=== PATIENT | male | born 1980 | race Caucasian/White ===

== ENCOUNTER 2018-09-08 18:00 | Inpatient (IN) | payer OTHER ==
[~2018-09-08] VITALS: Ht 180.3 cm; Wt 88.0 kg
--- NOTE | ~2018-09-08 | EKG ---
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
--- NOTE | ~2018-09-08 | EKG ---
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: JONY : 1980 Requested By: Omar Rodriguez Order Number: [id number] MD: Tacos Campbell Measurements Intervals [place] Rate: 94 P: 69 GA: 165 QRS: 46 QRSD: 97 T: 40 QT: 360 QTc: 451 Interpretive Statements Sinus rhythm Premature ventricular and supraventricular complexes Poor R wave progression Baseline wander in lead(s) V4 No previous ECG available for comparison Electronically Signed On 09-09-2018 7:50:30 PAPER PLATE MACHINE TENDER by Tacos Campbell [email or web address] <ELECTRONICALLY SIGNED> By: Tacos Campbell MD, [facility] 09/09/18 0750 07 07 Tacos Campbell MD, [facility] /EPI
--- NOTE | ~2018-09-08 | EKG ---
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 : 1980 Requested By: Jeremy Edge Order Number: [id number] MD: Jama Lewis Measurements Intervals [place] Rate: 73 P: 66 FL: 163 QRS: 56 QRSD: 88 T: 23 QT: 376 QTc: 415 Interpretive Statements Sinus bradycardia Atrial premature complexes in couplets Left atrial enlargement Compared to ECG 09/09/2018 03:56:25 Atrial premature complex(es) now present Atrial abnormality now present Sinus rhythm no longer present Electronically Signed On 09-11-2018 20:33:30 FINAL INSPECTOR by Jama Lewis [email or web address] <ELECTRONICALLY SIGNED> By: Jama Lewis MD 09/11/18 2033 1012 1012 Jama Lewis MD /EPI
[~2018-09-08 18:00] MED LIST: CELEXA40 MG PO; CLONAZEPAM 1 MG1 M1 PO; SUBOXONE 2 MG-1 EAC1 PO; TESTOSTERO200 MG/11 IM
[2018-09-08 18:03] VITALS: BP 137/96
[2018-09-08 18:54] LABS: PLATELET COUNT 371 thou/uL (150-400)
[2018-09-08 18:56] LABS: ABSOLUTE NEUTROPHILS 4.5 thou/uL (1.4-8.2); BASOPHILS 1.8 % (0.0-2.0); EOSINOPHILS 7.9 % (0.0-3.0); HEMATOCRIT 49.7 % (42.0-52.0); HEMOGLOBIN 17.2 gm/dL (14.0-18.0); LYMPHOCYTES 36.1 % (24.0-44.0); MCHC 34.5 g/dL (28.0-37.0); MCV 92.8 fL (80.0-100.0); MONOCYTES 11.3 % (1.0-8.0); POLYS 42.9 % (36.0-66.0); RBC 5.36 mil/uL (4.50-6.00); RDW 14.3 % (10.5-14.5); WBC 10.5 thou/uL (4.0-11.0)
[2018-09-08 19:01] LABS: ANION GAP 4 mmol/L (7-16); BUN 13 mg/dL (7-18); CALCIUM 9.8 mg/dL (8.5-10.1); CHLORIDE 102 mmol/L (98-107); CO2 32 mmol/L (21-32); CREATININE 1.2 mg/dL (0.7-1.3); GLUCOSE 84 mg/dL (74-106); POTASSIUM 3.9 mmol/L (3.5-5.1); SODIUM 138 mmol/L (136-145)
[2018-09-08 19:10] LABS: TROPONIN-I <0.06 ng/mL (<0.06)
[2018-09-08 19:22] LABS: LARGE PLATELETS FEW; PLATELET ESTIMATE NORMAL
[2018-09-08 19:47] VITALS: BP 137/96
[2018-09-08 19:57] VITALS: BP 118/64
[2018-09-08 20:30] VITALS: BP 150/94
[2018-09-08 20:50] LABS: CHOLESTEROL 188 mg/dL (<200); HDL CHOLESTEROL 53 mg/dL (>40); LDL CHOLESTEROL 115 mg/dL (<100); TC:HDL 3.5 Ratio (Not establshd); TRIGLYCERIDE 101 mg/dL (<150); VLDL 20 mg/dL (<40)
[2018-09-09] VITALS (7 sets, daily range): BP systolic 90–154; BP diastolic 43–87
[2018-09-09 04:33] LABS: CALCIUM 8.9 mg/dL (8.5-10.1); CREATININE 1.2 mg/dL (0.7-1.3); POTASSIUM 3.8 mmol/L (3.5-5.1)
[2018-09-10 06:34] VITALS: BP 107/58
[2018-09-10 07:54] VITALS: BP 107/54
[2018-09-10] MEDS ORDERED: ASPIR 8181 MG PO (10:16)
[2018-09-10] MEDS ORDERED: SORINE 80 MG TA80 M1 PO (10:16)
[2018-09-10] MEDS ORDERED: ACETAMINOPHEN325 M1 PO (10:16)
[2018-09-10] MEDS ORDERED: COLACE 100 MG100 MG PO (10:16)
[2018-09-10 11:38] VITALS: BP 117/69
[2018-09-10 12:46] VITALS: BP 117/69
== END 2018-09-10 13:08 | disposition home or self-care (01) | DRG 310 ==
LOC: ER 18:00 → 2N 19:58
PROVIDERS: Emergency Medicine; Nurse Practitioner Family
DX: I48.0 Paroxysmal atrial fibrillation (principal); I49.5 Sick sinus syndrome; G89.4 Chronic pain syndrome; F32.9 Major depressive disorder, single episode, unspecified; F17.210 Nicotine dependence, cigarettes, uncomplicated; F41.9 Anxiety disorder, unspecified; Z90.81 Acquired absence of spleen; Z87.828 Personal history of other (healed) physical injury and trauma; Z79.899 Other long term (current) drug therapy; Z71.6 Tobacco abuse counseling; Z28.21 Immunization not carried out because of patient refusal
CPT/HCPCS: 10081

== ENCOUNTER → 2018-10-10 | Outpatient (CLI) | payer OTHER ==
[~2018-10-10] MED LIST changes: +ACETAMINOPHEN325 M1 PO; +ASPIR 8181 MG PO; +COLACE 100 MG100 MG PO; +SORINE 80 MG TA80 M1 PO
[2018-10-10 07:43] LABS: HEMATOCRIT 51.1 % (42.0-52.0); HEMOGLOBIN 17.5 gm/dL (14.0-18.0); MCH 32.1 pg (26.0-34.0); MCHC 34.3 g/dL (28.0-37.0); MCV 93.5 fL (80.0-100.0); RBC 5.46 mil/uL (4.50-6.00); RDW 14.2 % (10.5-14.5); WBC 7.8 thou/uL (4.0-11.0)
[2018-10-10 07:57] LABS: ALBUMIN 4.2 g/dL (3.4-5.0); CALCIUM 9.2 mg/dL (8.5-10.1); CREATININE 1.3 mg/dL (0.7-1.3); POTASSIUM 4.2 mmol/L (3.5-5.1); TOTAL BILIRUBIN 0.3 mg/dL (<0.1-1.0); TOTAL PROTEIN 8.1 g/dL (6.4-8.2)
== END ==
LOC: CAT 07:12
PROVIDERS: Internal Medicine Cardiovascular Disease
DX: Z01.812 Encounter for preprocedural laboratory examination (principal); I48.91 Unspecified atrial fibrillation

== ENCOUNTER 2018-10-13 06:40 | Observation (INO) | payer OTHER ==
[~2018-10-13] VITALS: Ht 177.8 cm; Wt 88.5 kg
--- NOTE | ~2018-10-13 | P ---
[facility] [place] [address] PROCEDURE REPORT Name: INES GUEVARA Room #: [facility] Willie Galvin#: [id number] Admission: 10/13/18 Attend Phys: Jama Lewis MD Discharge: 10/14/18 Date of : 78 Report #: [id number] THIS REPORT FOR: //name// CC: Cristiane Lewis PREOPERATIVE DIAGNOSES: 1. Paroxysmal atrial fibrillation. 2. Paroxysmal atrial tachycardia. POSTOPERATIVE DIAGNOSES: 1. Paroxysmal atrial fibrillation. 2. Paroxysmal atrial tachycardia. PROCEDURES PERFORMED: 1. AFib ablation, CPT code 85661. 2. Program stimulation and pacing after IV, CPT code 55685. 3. 3D mapping, CPT code 47897. 4. Intracardiac echo, CPT code 38161. 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 He was recently admitted to hospital with atrial fibrillation with rapid ventricular response. However, he reports that for several years. He has had skipped heartbeats. On his 12-lead EKG, he has sinus rhythm followed by 3-4 beats of atrial tachycardia followed by return to sinus rhythm. He is here for EP study, possible ablation of the focal atrial tachycardia versus AFib ablation. DESCRIPTION OF PROCEDURE: The patient was brought to the EP laboratory in a fasting and sedated state and prepped and draped in a sterile fashion. Prior to being brought into the EP lab, he underwent informed consent. In the right femoral vein, I placed an 8-Togolese and 6-Togolese short sheath in the left femoral vein. I placed a 9-Togolese and 7-Togolese short sheath using the modified Seldinger technique. Next, under fluoroscopy, I placed 3 quadripolar catheters at the HRA, His, and RV positions and a decapolar catheter into the coronary sinus under fluoroscopy. At baseline, the patient was in sinus rhythm with sinus cycle length of 870 milliseconds, MO interval 135 milliseconds, QRS duration 91 milliseconds, QT interval 376 milliseconds, AH interval 135 milliseconds, and HV interval 45 milliseconds. With ventricular pacing, VA block was noted at 580 milliseconds, ventricular ERP was noted at 440 milliseconds at [address] cycle length. Atrial burst pacing was performed and AV block was noted at 350 milliseconds and atrial ERP was noted at 250 milliseconds at a [address] cycle length. There were no jumps or AV merna echoes. There were frequent PACs noted. These appear to be left-sided in origin based on the earliest activation on CS 1, 2 followed by latest activation in the right atrium. Next, isoproterenol infusion was initiated and AV block was noted at 300 milliseconds. Atrial burst pacing [facility] [address] [place] [address] PROCEDURE REPORT Name: PAOLAINES Room #: 210-P DENISSE Galvin#: [id number] Admission: 10/13/18 Attend Phys: Jama Lewis MD Discharge: 10/14/18 Date of : 78 Report #: [id number] maneuvers were performed and I could not induce an atrial tachycardia. I then increased the isoproterenol to 5 mcg per minute; AV block was noted 260 milliseconds. On higher isoproterenol, now there were more frequent PACs, which were reproducibly left-sided in nature. He would have anywhere from 1-5 of these beats of atrial tachycardia. It did not look like these would be easily mappable and did not appear to be right-sided. We then proceeded with transseptal. The patient was systemically heparinized and a transseptal was performed using an SL1 sheath and a [place] needle. Transseptal was straightforward and once I was in the left atrium, I placed a mapping catheter into the pulmonary veins and it became clear that the earliest atrial activity was coming from the left common ostium. We had performed a CT prior to the ablation and he had a left common ostium and two right veins. The atrial signal was 43 milliseconds earlier than the surface P-wave morphology. I therefore exchanged the SL1 sheath for the cryo sheath and placed the cryoballoon into the left atrium and we isolated the left common ostium first. The first freeze had good temperatures at -55 degrees and I stayed on for 170 seconds. After this freeze, the vein was isolated and there were no more premature atrial contractions noted. I performed an additional 4-minute freeze followed by a 3-minute freeze to ensure that this common ostium remained isolated. Once I isolated the left common ostium, I started the isoproterenol back and I could not demonstrate any more PACs. Given that he had had atrial fibrillation as well, I decided that we should go ahead and isolated the other two veins. The right superior vein isolated with one 4-minute freeze and the right inferior pulmonary vein isolated after a 4-minute followed by a 3-minute freeze with evidence of entrance and exit block. While freezing the right-sided veins, phrenic nerve pacing was performed from the decapolar catheter placed in the superior vena cava. Post-ablation, I created a detailed voltage map of the left atrium, which showed that we had isolated the pulmonary veins and had created a wide circumferential ablation of the left atrium. Of note, it appeared that there was isolated firing of the left common ostium and this was no longer conducting to the atrium. Post-ablation, there were no other arrhythmias noted. As such, using intracardiac ultrasound, I verified that there was no pericardial effusion. I then pulled my catheters and sheaths to the right atrium and the patient received systemic protamine. Once the ACT was within acceptable range, catheters and sheaths were pulled and hemostasis was obtained. The patient awoke neurologically and hemodynamically intact. No complications and no significant bleeding. CONCLUSIONS: 1. Successful AFib ablation with isolation of 3 pulmonary veins. 2. Successful ablation of the focal left atrial tachycardia that was arising from the left common ostium. 3. Normal SA merna function. 4. Normal AV node function. [facility] [address] [place] [address] PROCEDURE REPORT Name: PAOLAINES Room #: [address] [place] [address] Willie VillalbaRSimone#: [id number] Admission: 10/13/18 Attend Phys: Jama Lewis MD Discharge: 10/14/18 Date of : 78 Report #: [id number] 5. Normal His-Purkinje function. 6. No other inducible arrhythmias on or off isoproterenol. By: [id number] Jaam Lewis MD /nt
[2018-10-13] MEDS ORDERED: FLURBIPROFEN100 MG PO (06:46)
[2018-10-13] MEDS ORDERED: CARDIZEM CD120 MG PO (06:46)
[2018-10-13 07:06] VITALS: BP 114/63
[2018-10-13 07:09] LABS: HEMATOCRIT 49.3 % (42.0-52.0); MCH 31.9 pg (26.0-34.0); MCHC 34.5 g/dL (28.0-37.0); MCV 92.7 fL (80.0-100.0); PLATELET COUNT 374 thou/uL (150-400); RBC 5.32 mil/uL (4.50-6.00); RDW 14.4 % (10.5-14.5); WBC 6.5 thou/uL (4.0-11.0)
[2018-10-13] MEDS ORDERED: PRADAXA150 MG PO (07:14)
[2018-10-13 07:28] LABS: CALCIUM 9.4 mg/dL (8.5-10.1); CREATININE 1.2 mg/dL (0.7-1.3); POTASSIUM 4.3 mmol/L (3.5-5.1)
[2018-10-13 07:35] LABS: TOTAL BILIRUBIN 0.7 mg/dL (<0.1-1.0); TOTAL PROTEIN 7.6 g/dL (6.4-8.2)
[2018-10-13 07:55] LABS: ABSOLUTE NEUTROPHILS 2.6 thou/uL (1.4-8.2); ATYPICAL LYMPHS 5 %
[2018-10-13 07:56] LABS: ANISOCYTOSIS SLIGHT
[2018-10-13 08:30] LABS: INR 1.1; PROTIME 11.7 Seconds (9.3-11.4)
[2018-10-13 08:31] LABS: APTT 42.5 Seconds (24.5-32.8)
--- NOTE | 2018-10-13 20:14 | NUR ---
ASSUMED CARE OF PATIENT AT 1415 FROM EP LAB. PATIENT HAS BILATERAL GROIN SITES WHICH ARE WITHOUT HEMATOMA, EDEMA OR BLOOD. PATIENT IS TO REMAIN ON BEDREST UNTIL 1910. PATIENT WAS COMPLAINT WITH BEDREST REGARDLESS OF THE FACT THAT HE HAD BACK PAIN FROM LAYING FLAT SO LONG. WE LOG ROLLED HIM AND PLACED A WARM BLANKET UNDER HIS BACK AND RAISED HIM IN BED USING THE DRAW SHEETS IN ORDER TO DECREASE PAIN WHICH WAS MINIMALLY EFFECTIVE. PATIENT DENIES ANY CHEST PAIN. PLAN IS TO CONTINUE WITH POC.
[2018-10-13 20:30] VITALS: BP 102/56
[2018-10-14 00:09] VITALS: BP 105/56
--- NOTE | 2018-10-14 03:09 | NUR ---
ASSESSMENT DOCUMENTED,PT BEEN RESTING IN NO ACUTE DISTRESS.C/O DIZZINESS W/NAUSEA AFTER BEING OFF BEDREST THAT RESOLVED VERY QUICKLY AND W/O TREATMENT.ZAYNAB GROINS SITES INTACT,SOFT AND W/O HEMATOMA.DRESSING CDI.C/O BACK UP THAT WAS RELIEVED BY GETTING UP AND WALKING IN THE ROOM AFTER BEDREST.HODGES DISCONTINUED.PT DENIES ANY OTHER NEEDS AT THIS TIME.WILL CONT TO MONITOR PER POC.
[2018-10-14 03:58] VITALS: BP 108/49
[2018-10-14 08:07] VITALS: BP 116/56
[2018-10-14 09:46] VITALS: BP 116/56
--- NOTE | 2018-10-14 10:19 | NUR ---
ASSUMED CARE OF PT AT 0700. PT A&OX4, UP AD YVETTE. PT LEFT AND RIGHT GROIN SITES AND RIGHT WRIST HAVE DRESSINGS AND ARE C/D/I. NO BLEEDING OR HEMATOMA. PT HAS BACK AND KNEE PAIN/STIFFNESS HE DESCRIBES DUE TO BEING IN BED. PAIN/STIFFNESS PARTIALLY RELIEVED WITH ABULATION. PT VITALS WNL EXCEPT PT WAS BRADYCARDIC IN HIGH 50'S IN AM. PT AND SPOUSE COMMUNICATE UNDERSTANDING OF ALL DISCHARGE MEDS/ORDERS AND FOLLOWUP APPTS. PT STATES HE HAS ALL BELONGINGS. IV AND TELEMETRY REMOVED. PT REQUESTED TO WALK TO EXIT, REFUSED WHEELCHAIR. WAS PRESENT TO DRIVE HIM HOME.
== END 2018-10-14 10:29 | disposition home or self-care (01) ==
LOC: CATH 06:40 → 2N 14:30 → CATH 14:57 → 2N 10-14 10:29
PROVIDERS: ADMIT Internal Medicine Cardiovascular Disease
DX: I48.0 Paroxysmal atrial fibrillation (principal); I47.9 Paroxysmal tachycardia, unspecified; I48.92 Unspecified atrial flutter; Z79.899 Other long term (current) drug therapy
CPT/HCPCS: 62110; 62900; 65020; 65040; 70005

== ENCOUNTER 2018-10-17 13:41 | Emergency (ER) | payer OTHER ==
[~2018-10-17] VITALS: Ht 177.8 cm; Wt 88.5 kg
[~2018-10-17 13:41] MED LIST changes: +CARDIZEM CD120 MG PO; +FLURBIPROFEN100 MG PO; +PRADAXA150 MG PO
[2018-10-17] MEDS ORDERED: TYLENOL325 M1 PO (15:16)
[2018-10-17] MEDS ORDERED: IBUPROFEN 200200 M1 PO (15:16)
[2018-10-17 15:41] VITALS: BP 125/78
== END 2018-10-17 15:45 | disposition home or self-care (01) ==
LOC: ER 13:41
DX: G43.909 Migraine, unspecified, not intractable, without status migrainosus (principal); F32.9 Major depressive disorder, single episode, unspecified; F41.9 Anxiety disorder, unspecified; I48.91 Unspecified atrial fibrillation

== ENCOUNTER 2019-05-29 05:04 | Emergency (ER) | payer OTHER ==
[~2019-05-29] VITALS: Ht 177.8 cm; Wt 83.9 kg
[~2019-05-29 05:04] MED LIST changes: +IBUPROFEN 200200 M1 PO; +TYLENOL325 M1 PO
[2019-05-29] MEDS ORDERED: NAPROSYN500 MG PO (05:42)
[2019-05-29] MEDS ORDERED: NORFLEX100 MG PO (05:42)
[2019-05-29 06:19] LABS: URINE BILIRUBIN NEGATIVE (Negative); URINE BLOOD NEGATIVE (Negative); URINE CLARITY CLEAR; URINE COLOR YELLOW; URINE GLUCOSE-RANDOM* NEGATIVE (Negative); URINE KETONES NEGATIVE (Negative); URINE LEUKOCYTES-REFLEX NEGATIVE (Negative); URINE NITRITE-REFLEX NEGATIVE (Negative); URINE PROTEIN (DIPSTICK) NEGATIVE (Negative); URINE SPECIFIC GRAVITY 1.015 (1.005-1.035); URINE UROBILINOGEN 0.2 E.U./dl (0.2-1.0)
[2019-05-29 06:28] LABS: AMP/METHAMP Negative (Negative); BARBITURATES Negative (Negative); BENZODIAZEPINES Negative (Negative); COCAINE Negative (Negative); METHADONE Negative (Negative); OPIATES Negative (Negative); PCP Negative (Negative)
[2019-05-29 07:06] VITALS: BP 146/75
== END 2019-05-29 07:07 | disposition home or self-care (01) ==
LOC: ER 05:04
PROVIDERS: Emergency Medicine
DX: S39.012A Strain of muscle, fascia and tendon of lower back, initial encounter (principal); F32.9 Major depressive disorder, single episode, unspecified; F41.9 Anxiety disorder, unspecified; F17.210 Nicotine dependence, cigarettes, uncomplicated; X58.XXXA Exposure to other specified factors, initial encounter; Y93.89 Activity, other specified; Y92.89 Other specified places as the place of occurrence of the external cause; Y99.8 Other external cause status